=== PATIENT | female | born 1995 | race Caucasian/White ===

== ENCOUNTER 2021-02-09 07:35 | Inpatient (IN) ==
[2021-02-09] MEDS ORDERED: OXYTOCIN 30 UNITS/500 ML BAG IV PRN ×3 (07:44→18:37)
[2021-02-09 08:04] LABS: Hematocrit (blood only) 37.3 % (37-47); Hemoglobin 12.4 g/dL (12.0-16.0); Mean Corpuscular Hemoglobin 29.2 pg (25-34); Mean Corpuscular Hgb Conc 33.2 g/dL (32-36); Mean Corpuscular Volume 87.8 fL (80-100); Mean Platelet Volume 10.9 fL (7.4-10.4); Platelet Count 140 K/uL (130-400); RDW Coefficient of Variation 13.5 % (11.5-14.5); RDW Standard Deviation 43.1 fL (36.4-46.3); Red Blood Count 4.25 M/uL (4.2-5.4)
--- NOTE | 2021-02-09 08:27 | History & Physical Report ---
Date of Service February 09, 2021 Assessment & Plan (1) 40 weeks gestation of : Plan: Patient now presents in labor. Plan to admit. Desires epidural. arom and pit as indicated. fetus category one. Anticipate . Admission and Anticipated Discharge Date Admission Date: February 09, 2021 History of Present Illness Chief Complaint: labor Primary Care Provider: NO PCP Patient is a 25yowf with iup at 40 1/7 weeks who presents this am for induction /labor. Was seen by DR. Díaz yesterday and stauffer placed. Fell out at 5pm. Has been having painful contractions since, she notes q7min. +bloody show. no lof. Good fm. has been uncomplicated. At visit on 02/04 an arrythmia was heard by Dr. Short. This was the first this has occurred. labs--A+/ab-/ri/rprnr/hep-/hiv-/gc/ct-/cf/sma neg/low risk panorama/ gtt x 2 nl/ gbs neg Allergies Allergy/AdvReac Type Severity Reaction Status Date / Time No Known Allergies Allergy Verified 02/09/21 08:10 Home Medications Medication Instructions Recorded Confirmed Type prenat.vits,benjamin,psn-shzq-lnpvo 1 tab PO DAILY 06/22/20 02/09/21 History Patient History Medical History Varicella vaccination Surgical History S/P appendectomy Family History Denies family history of Ovarian cancer Breast cancer Colorectal cancer Social History Smoking Status: Never smoker Second Hand Exposure: No; Hx Alcohol Use: No Hx Substance Use: No Preferred Language: Serbo-Canadian Communication Ability: Effective 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 Beliefs That Will Affect Care: None marital status: marital status details: Alok Valiente Current Living Situation: Spouse Current Living Situation Comment: lives with spouse, no pets current occupational status: unemployed 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 Feels Safe at Home: Yes Safety Concerns: Feels Safe At This Time Assistive Devices: None 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
[2021-02-09] MEDS: LACTATED RINGER'S 1,000 ML IV PRN ×2 (08:30→09:27)
[2021-02-09] MEDS ORDERED: ePHEDrine sulfate 50 MG/ML AMP ONE (08:55)
[2021-02-09] MEDS ORDERED: BUPIVACAINE 0.25% 30 ML VIAL ONE (08:55)
[2021-02-09] MEDS ORDERED: SODIUM CHLORIDE 0.9% INJ 10 ML VIAL ONE (08:55)
[2021-02-09] MEDS ORDERED: fentaNYL 2MCG/ML ROPIVACAINE 1.25MG/ML 100 ML BAG EPI ONE (08:56)
[2021-02-09] MEDS ORDERED: fentaNYL citrate 100 MCG/2 ML VIAL ONE (08:56)
--- NOTE | 2021-02-09 09:14 | Medical Student H&P ---
Date of Service February 09, 2021 Assessment & Plan (1) 40 weeks gestation of : Plan: Cris is a 25 year old female at 40 1/7 weeks who is now in active labor. * Epidural * continuous monitoring * APROM as needed * Pitocin as needed * Anticipate normal spontaneous vaginal delivery Admission and Anticipated Discharge Date Admission Date: February 09, 2021 History of Present Illness Primary Care Provider: NO PCP Cris is a 25 year old female at 40 1/7 weeks who presents for induction of labor. On 02/08 she reported having painful contractions every 10 minutes, decreased movement and bloody show, which prompted her to come to the hospital. She had a stauffer balloon placed and was found to be 2 cm dilated at 5pm 02/08. Overnight, she reports having contractions every 7 minutes with light pink/ brown bleeding. movement is improved today. Denies rupture of membranes. Overall, her course has been unremarkable. She reports taking vitamins. She has gained 24 pounds during her . She denies any hypertension and her glucose screening test was negative. labs: GBS, HIV, hepatitis, gonorrhea/ chlamydia, rprnr negative. Low risk panaroma, cf/sma negative. AB- Allergies Allergy/AdvReac Type Severity Reaction Status Date / Time No Known Allergies Allergy Verified 02/09/21 08:10 Home Medications Medication Instructions Recorded Confirmed Type prenat.vits,benjamin,[id number]-[id number] 1 tab PO DAILY 06/22/20 02/09/21 History Patient History Medical History Varicella vaccination Surgical History S/P appendectomy Family History Denies family history of Ovarian cancer Breast cancer Colorectal cancer Social History Smoking Status: Never smoker Second Hand Exposure: No; Hx Alcohol Use: No Hx Substance Use: No Preferred Language: Serbo-Vietnamese Communication Ability: Effective 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 Beliefs That Will Affect Care: None marital status: marital status details: Alok Valiente Current Living Situation: Spouse Current Living Situation Comment: lives with spouse, no pets 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 Jean Baptistek: cervix: 6,100,-1 Monitoring External Monitor 140s with moderate variability Tocodynamometer contractions every 6-7 minutes Results & Data ([facility]) Vital Signs (Past 12 Hours) Vital Signs Temp Pulse Resp BP 02/09/21 07:49 36.6 C 20 02/09/21 07:45 84 104/70
--- NOTE | 2021-02-09 09:30 | Anesthesiology Consultation ---
Date of Service February 09, 2021 Assessment & Plan (1) Encounter for pre-operative examination: Chart Review Chart Review: Acceptable Risk for Labor Epidural History Height/Weight Height: 5 ft 7 in Weight: 74.389 kg Allergies Allergy/AdvReac Type Severity Reaction Status Date / Time No Known Allergies Allergy Verified 02/09/21 08:10 Medications Home Medications Medication Instructions Recorded Confirmed Last Taken prenat.vits,benjamin,sal-[id number]-[id number] 1 tab PO DAILY 06/22/20 02/09/21 02/08/21 08:00 Active Medications Generic Name Dose Route Start Last Admin Trade Name Freq PRN Reason Stop Dose Admin Lactated Ringer's 1,000 mls @ 125 mls/hr 02/09/21 07:44 02/09/21 09:27 Lr IV 02/11/21 07:43 125 mls/hr .Q8H PRN Administration L&D Protocol Protocol Past Medical History Medical History Varicella vaccination Past Family History Family History Denies family history of Ovarian cancer Breast cancer Colorectal cancer Past Surgical History Surgical History S/P appendectomy Social History Smoking Status: Never smoker Hx Alcohol Use: No Hx Substance Use: No Physical Exam Vital Signs Last Vital Signs Temp 36.6 C 02/09/21 07:49 Pulse 73 02/09/21 09:24 Resp 20 02/09/21 07:49 BP 123/82 02/09/21 09:07 Pulse Ox 100 02/09/21 09:24 Testing Laboratory Results 02/09/21 07:51
[2021-02-09] MEDS ORDERED: fentaNYL 2MCG/ML ROPIVACAINE 1.25MG/ML 100 ML BAG EPI PRN (09:54)
[2021-02-09] MEDS ORDERED: NALOXONE HCL 0.4 MG/1 ML VIAL/CARP IV PRN (09:54)
[2021-02-09] MEDS ORDERED: NALOXONE HCL 1 MG in SODIUM CHLORIDE 0.9% 1000ML 1,000 ML IV PRN (09:54)
[2021-02-09] MEDS ORDERED: ONDANSETRON INJ 2 MG/ML 2 ML VIAL IV PRN (09:54)
[2021-02-09] MEDS ORDERED: ePHEDrine sulfate 50 MG/ML AMP IV PRN (09:54)
--- NOTE | 2021-02-09 14:40 | Labor Progress Brief Note ---
Date of Service February 09, 2021 Subjective comfortable with epidural Assessment & Plan (1) 40 weeks gestation of : Plan: continue current management. anticipate Admission and Anticipated Discharge Date Admission Date: February 09, 2021 Physical Exam Physical Exam: cx--7/100/-2 arom of forebag, clear toco--q2-4min efm--category one Results & Data ([facility]) Vital Signs (Past 12 Hours) Vital Signs Temp Pulse Resp BP Pulse Ox 02/09/21 14:34 78 98 02/09/21 14:32 67 111/73 02/09/21 14:29 75 97 02/09/21 14:26 66 77/46 L 02/09/21 14:24 69 97 02/09/21 14:19 64 96 02/09/21 14:14 71 96 02/09/21 14:13 71 82/52 L 02/09/21 14:09 70 96 02/09/21 14:04 61 96 02/09/21 14:01 36.8 C 20 02/09/21 13:59 72 96 02/09/21 13:57 64 96/54 L 02/09/21 13:54 68 96 02/09/21 13:49 64 96 02/09/21 13:44 68 98 02/09/21 13:41 65 87/50 L 02/09/21 13:39 69 98 02/09/21 13:34 66 99 02/09/21 13:31 20 02/09/21 13:29 70 98 02/09/21 13:26 64 106/68 02/09/21 13:24 74 96 02/09/21 13:19 71 97 02/09/21 13:14 71 99 02/09/21 13:11 72 83/52 L 02/09/21 13:09 78 97 02/09/21 13:04 70 97 02/09/21 13:01 20 02/09/21 12:59 67 97 02/09/21 12:56 65 89/55 L 02/09/21 12:54 69 96 02/09/21 12:49 58 L 95 02/09/21 12:44 63 96 02/09/21 12:41 62 105/59 L 02/09/21 12:39 64 96 02/09/21 12:34 60 97 02/09/21 12:31 36.9 C 20 02/09/21 12:29 64 98 02/09/21 12:27 61 98/61 L 02/09/21 12:24 68 99 02/09/21 12:19 74 99 02/09/21 12:16 20 02/09/21 12:14 67 98 02/09/21 12:11 67 89/54 L 02/09/21 12:09 78 98 02/09/21 12:04 65 98 02/09/21 12:01 20 02/09/21 11:59 89 98 02/09/21 11:56 80 89/52 L 02/09/21 11:54 88 97 02/09/21 11:49 57 L 96 02/09/21 11:46 20 02/09/21 11:44 65 97 02/09/21 11:42 63 94/60 L 02/09/21 11:39 66 98 02/09/21 11:34 55 L 98 02/09/21 11:31 20 02/09/21 11:29 76 98 02/09/21 11:27 61 100/70 02/09/21 11:24 68 97 02/09/21 11:19 64 98 02/09/21 11:16 20 02/09/21 11:14 75 98 02/09/21 11:11 73 99/65 L 02/09/21 11:09 80 98 02/09/21 11:04 69 98 02/09/21 11:01 20 02/09/21 10:59 69 101/58 L 97 02/09/21 10:54 71 97 02/09/21 10:49 70 97 02/09/21 10:46 20 02/09/21 10:44 75 97 02/09/21 10:41 68 102/60 02/09/21 10:39 71 98 02/09/21 10:34 67 98 02/09/21 10:31 20 02/09/21 10:29 72 98 02/09/21 10:24 73 99 02/09/21 10:22 67 100/65 02/09/21 10:19 66 99 02/09/21 10:17 71 109/69 02/09/21 10:15 20 02/09/21 10:14 64 99 02/09/21 10:12 63 106/63 02/09/21 10:09 75 95 02/09/21 10:07 66 98/66 L 02/09/21 10:04 70 97 02/09/21 10:03 20 02/09/21 10:01 68 99/67 L 02/09/21 09:59 79 95/62 L 96 02/09/21 09:57 55 L 98/64 L 02/09/21 09:55 74 20 96/63 L 02/09/21 09:54 80 98 02/09/21 09:53 69 97/64 L 02/09/21 09:51 37.0 C 66 99/65 L 02/09/21 09:50 71 113/67 02/09/21 09:49 71 99 02/09/21 09:47 78 106/72 02/09/21 09:44 78 99 02/09/21 09:39 75 99 02/09/21 09:34 77 98 02/09/21 09:29 73 98 02/09/21 09:24 73 100 02/09/21 09:17 66 99 02/09/21 09:12 68 100 02/09/21 09:07 68 123/82 100 02/09/21 07:49 36.6 C 20 02/09/21 07:45 84 104/70 Coding Level of Care Code None Diagnoses 40 weeks gestation of Z3A.40
[2021-02-09] MEDS ORDERED: oxyCODONE/ACETAMINOPHEN 5mg/325mg TAB PO PRN (18:22)
[2021-02-09] MEDS ORDERED: ACETAMINOPHEN 325 MG TAB PO PRN (18:22)
--- NOTE | 2021-02-09 18:28 | Delivery Summary ---
Vaginal Delivery Summary Date of Service February 09, 2021 Vaginal Delivery Summary and 1st Degree LAC Pre-operative Diagnosis: at 40 weeks labor Post-operative Diagnosis: same Procedure: epidural pitocin arom periclitoral and first degree laceration and repair EBL: 350cc Anesthesia: epidural Procedure: Patient presented to labor and delivery in early active labor. Had stauffer placed the night before that fell out. ON arrival was 6cm. Received epidural then pit and arom. the patient progressed to c/c/+2 station. The patient pushed for 40 minutes to deliver a viable femla infant in art position. There was no nuchal cord and the rest of the infant was then delivered without difficulty. The baby was vigorous. The nose and mouth were bulb suctioned and the was placed in the maternal abdomen for drying and attention. Cord wa s clamped and cut at one minute of life. Placenta delivered spontaneous, intact with a three vessel cord. Cervix/sulci/rectum/perineum were intact. A first degree vaginal laceration and a periclitoral laceration were repaired in the normal standard fashion. Hemostasis obtained with dilute pitocin and fundal massage. Apgars were 8/9. Mother and baby doing well at the end of the delivery. [facility] Vaginal Delivery Charge Delivery Type Details: and 1st Degree LAC
[2021-02-09] MEDS ORDERED: bisacodyL 10 MG SUPP PR PRN (18:37)
[2021-02-09] MEDS ORDERED: BENZOCAINE 20% AER SPR 82.5 GM CAN EXT PRN (18:37)
[2021-02-09] MEDS ORDERED: SUPERCREAM 0.870% 15 GM JAR EXT PRN (18:37)
[2021-02-09] MEDS ORDERED: DIPHTHERIA/TETANUS/PERTUSSIS 0.5 ML SYR/VIAL IM ONE (18:37)
[2021-02-09] MEDS ORDERED: HYDROCORTISONE ACETATE 25 MG SUPP PR PRN (18:37)
--- NOTE | 2021-02-09 19:25 | Anesthesia Procedure Note ---
Date of Service February 09, 2021 Anesthesia Post Epidural Note Vital Signs Vital Signs: Temp Pulse Resp BP Pulse Ox 36.8 C 72 20 170/68 H 97 02/09/21 16:31 02/09/21 19:16 02/09/21 18:46 02/09/21 19:16 02/09/21 18:14 Pain Intensity Bilateral Abdomen: Pain Intensity: 0 Notes Mental Status: alert / awake / arousable and participated in evaluation Nausea / Vomiting: adequately controlled Pain: adequately controlled Airway Patency, RR, SpO2: stable & adequate BP & HR: stable & adequate Hydration State: stable & adequate Neuraxial Anesthesia: was administered and sensory block is resolving Anesthetic Complications: no major complications apparent Epidural: Removed without complications and With tip intact
[2021-02-09] MEDS: DOCUSATE SODIUM 100 MG CAP PO SCH (21:48)
[2021-02-09] MEDS: IBUPROFEN 600 MG TAB PO PRN (22:45)
[2021-02-10] MEDS: IBUPROFEN 600 MG TAB PO PRN ×4 (05:15→21:52)
--- NOTE | 2021-02-10 06:01 | Obstetrical Progress Note ---
Date of Service <Tracie Baez MD - Last Filed: 02/10/21 07:18> February 10, 2021 Assessment & Plan <Tracie Baez MD - Last Filed: 02/10/21 07:18> (1) Encounter for care and examination after delivery: 25 yo now PPD1 from at 40wk1d -Continue routine care, anticipated d/c tomorrow -Vitals reviewed- HDS, afebrile -Blood type A+, GBS-, Rubella immune -Encourage ambulation, regular diet -Pain control with ibuprofen, acetaminophen PRN -Encourage -Hgb 12.4 on admission, asymptomatic -F/u in 6 weeks with OB <Shagufta Vital MD, FACOG - Last Filed: 02/10/21 07:20> (1) Encounter for care and examination after delivery: Subjective <Tracie Baez MD - Last Filed: 02/10/21 07:18> Ambulation: ambulating normally Voiding: no voiding problems Passing Gas:: Yes Diet Tolerance:: regular diet Lochia:: Small Feeding Type:: breast feeding Current Pain Level(1-10): 0 Pt and baby doing well, no acute events or complaints. Has not passed BM yet. Minor cramping pain well controlled with medication. Review of Systems Denies fevers/chills. Denies dyspnea, cough. Denies chest pain. Denies breast pain or discharge. Denies dysuria. Denies headache. Denies back pain. Physical Exam <Tracie Baez MD - Last Filed: 02/10/21 07:18> General: Alert, oriented, no acute distress Cardiac: Regular rate and rhythm, normal S1, S2. No murmurs appreciated. Respiratory: Clear to auscultation b/l with good air flow entry, symmetric chest rise and fall. No wheezes or crackles. No increased work of breathing or accessory muscle use Abdomen: Soft, nontender, nondistended. Fundus firm and palpable at 2 cm below umbilicus. No guarding or rebound. Skin: No rashes or lesions Extremities: Warm, dry, well-perfused with capillary refill <2s b/l. No lower extremity edema, erythema or swelling. Negative Caroline's sign b/l. Results & Data ([facility]) <Tracie Baez MD - Last Filed: 02/10/21 07:18> Vital Signs (Past 12 Hours) Vital Signs Temp Pulse Pulse Resp BP BP Pulse Ox 02/10/21 03:55 36.9 C 63 16 101/64 99 02/09/21 23:00 36.8 C 54 L 18 100/60 99 02/09/21 21:05 37 C 77 18 98/61 L 02/09/21 20:01 77 111/71 02/09/21 19:46 84 112/67 02/09/21 19:31 65 109/70 02/09/21 19:16 72 170/68 H 02/09/21 19:01 96 H 102/70 02/09/21 19:00 36.8 C 16 02/09/21 18:46 85 20 102/67 02/09/21 18:31 187 H 20 112/63 02/09/21 18:16 76 20 112/59 L 02/09/21 18:14 91 H 97 02/09/21 18:11 84 101/57 L 02/09/21 18:09 78 97 02/09/21 18:04 127 H 92 02/09/21 18:02 106 H 88 L <Shagufta Vital MD, FACOG - Last Filed: 02/10/21 07:20> Co-Signing Physician Notes Resident Physician Supervision Note: I interviewed and examined the patient. Discussed with Dr. Gordillo and agree with findings and plan as documented in the note. Any exceptions or clarifications are listed here: Doing well. Routine care. Documented By: Shagufta Vital MD, FACOG Resident Activity Tracking <Tracie Baez MD - Last Filed: 02/10/21 07:18> Resident Involvement: Resident Care Provided Care Provided: OB Delivery
[2021-02-10 07:02] LABS: Hematocrit (blood only) 37.5 % (37-47); Hemoglobin 12.4 g/dL (12.0-16.0)
[2021-02-10] MEDS: PRENATAL VITAMIN 1 TAB PO SCH (07:30)
[2021-02-10] MEDS: DOCUSATE SODIUM 100 MG CAP PO SCH ×2 (07:30→20:52)
[2021-02-10] MEDS ORDERED: bisacodyL 5 MG TABEC PO SCH (20:00)
[2021-02-11] MEDS: IBUPROFEN 600 MG TAB PO PRN ×2 (02:48→08:20)
--- NOTE | 2021-02-11 05:51 | Obstetrical Progress Note ---
Date of Service <Tracie Baez MD - Last Filed: 02/11/21 07:22> February 11, 2021 Assessment & Plan <Tracie Baez MD - Last Filed: 02/11/21 07:22> (1) Encounter for care and examination after delivery: 25 yo now PPD2 from at 40wk1d -Continue routine care, will d/c today, discussed d/c with patient -Vitals reviewed- HDS, afebrile -Blood type A+, GBS-, Rubella immune -Encourage ambulation, regular diet -Pain control with ibuprofen, acetaminophen PRN -Encourage -Hgb 12.4, asymptomatic -F/u in 6 weeks with OB <Tamera Anton MD - Last Filed: 02/11/21 07:31> (1) Encounter for care and examination after delivery: Subjective <Tracie Baez MD - Last Filed: 02/11/21 07:22> Ambulation: ambulating normally Voiding: no voiding problems Passing Gas:: Yes Diet Tolerance:: regular diet Lochia:: Small Feeding Type:: breast feeding Current Pain Level(1-10): 0 Pt and baby doing well, no acute events or complaints. Has not passed BM yet. Minor cramping pain well controlled with medication. Review of Systems Denies fevers/chills. Denies dyspnea, cough. Denies chest pain. Denies breast pain or discharge. Denies dysuria. Denies headache. Denies back pain. Physical Exam <Tracie Baez MD - Last Filed: 02/11/21 07:22> General: Alert, oriented, no acute distress Cardiac: Regular rate and rhythm, normal S1, S2. No murmurs appreciated. Respiratory: Clear to auscultation b/l with good air flow entry, symmetric chest rise and fall. No wheezes or crackles. No increased work of breathing or accessory muscle use Abdomen: Soft, nontender, nondistended. Fundus firm and palpable at 2 cm below umbilicus. No guarding or rebound. Skin: No rashes or lesions Extremities: Warm, dry, well-perfused with capillary refill <2s b/l. No lower extremity edema, erythema or swelling. Negative Caroline's sign b/l. Results & Data ([facility]) <Tracie Baez MD - Last Filed: 02/11/21 07:22> Vital Signs (Past 12 Hours) Vital Signs Temp Pulse Resp BP Pulse Ox 02/10/21 23:50 36.9 C 59 L 16 95/60 L 99 02/10/21 19:40 36.4 C L 73 20 103/67 98 <Tamera Anton MD - Last Filed: 02/11/21 07:31> Co-Signing Physician Notes Resident Physician Supervision Note: I interviewed and examined the patient. Discussed with Dr. Baez and agree with findings and plan as documented in the note. Any exceptions or clarifications are listed here: [ ] Documented By: Tamera Anton MD, FACOG Resident Activity Tracking <Tracie Baez MD - Last Filed: 02/11/21 07:22> Resident Involvement: Resident Care Provided Care Provided: OB Delivery
[2021-02-11] MEDS: PRENATAL VITAMIN 1 TAB PO SCH (08:20)
[2021-02-11] MEDS: DOCUSATE SODIUM 100 MG CAP PO SCH (08:20)
== END 2021-02-11 14:30 | disposition home or self-care (01) | DRG 807 ==
LOC: 4S1 07:35 → 4S2 21:20